=== PATIENT | female | born 1975 ===

== ENCOUNTER 2020-11-18 08:07 | Observation (INO) | payer OTHER ==
[2020-11-18] MEDS ORDERED: ASPIRIN 325 MG TAB PO ONE (08:13)
--- NOTE | 2020-11-18 08:45 | XRay Report ---
CHEST 2 VIEWS INDICATION / CLINICAL INFORMATION: Chest Pain. COMPARISON: None available. FINDINGS: SUPPORT DEVICES: None. HEART / MEDIASTINUM: No significant abnormality. LUNGS / PLEURA: No significant pulmonary or pleural abnormality. No pneumothorax. ADDITIONAL FINDINGS: No significant additional findings. IMPRESSION: 1. No acute findings. Signer Name: nJ Dias MD Signed: 11/18/2020 8:41 AM Workstation Name: [id number]
[2020-11-18 09:40] LABS: Basophils % (Auto) 0.5 % (0.0-1.8); Eosinophils # (Auto) 0.2 K/mm3 (0.0-0.4); Eosinophils % (Auto) 3.1 % (0.0-4.3); Hematocrit 39.6 % (30.3-42.9); Hemoglobin 13.5 gm/dl (10.1-14.3); Lymphocytes # (Auto) 2.2 K/mm3 (1.2-5.4); Lymphocytes % (Auto) 33.6 % (13.4-35.0); Mean Corpuscular HGB Conc 34 % (30-34); Mean Corpuscular Volume 91 fl (79-97); Monocytes # (Auto) 0.3 K/mm3 (0.0-0.8); Monocytes % (Auto) 5.3 % (0.0-7.3); Platelet Count 192 K/mm3 (140-440); Red Blood Count 4.37 M/mm3 (3.65-5.03); Red Cell Distribution Width 13.6 % (13.2-15.2)
[2020-11-18 10:01] LABS: Blood Urea Nitrogen 10 mg/dL (7-17); Calcium 8.4 mg/dL (8.4-10.2); Hemolysis Index 8
[2020-11-18] MEDS ORDERED: NITROGLYCERIN 2% OINT 1 GM TP ONE (10:07)
[2020-11-18] MEDS ORDERED: ONDANSETRON 4 MG/2 ML INJ IV ONE (10:07)
[2020-11-18] MEDS ORDERED: fentaNYL 100 MCG/2 ML INJ IV ONE (10:07)
--- NOTE | 2020-11-18 10:13 | Emergency Department Report ---
HPI - General Chief Complaint: Dyspnea/Respdistress Time Seen by Provider: 11/18/20 09:55 - [facility] HPI: Room 22 The patient is a 45-year-old female present with chief complaint of chest pain. Patient states her symptoms began yesterday while climbing stairs she developed slight substernal chest pressure and shortness of breath. The patient stopped and was able to catch her breath and her symptoms eventually resolved. However, later that day she again developed substernal chest pressure and shortness of breath intermittently. This morning the pressure became "unbearable" prompting the patient to come to the emergency department. Patient denies nausea/vomiting or diaphoresis with her chest pain. The patient currently gives her chest pain a score 4/10. Patient states she is never had a stress test or cardiac catheterization ED Past Medical Hx - Past Medical History Previous Medical History?: Yes Additional medical history: Vaginal delivery x 4 - Surgical History Past Surgical History?: No - Family History Family history: no significant - Social History Smoking Status: Never Smoker Substance Use Type: None (Denies illicit drug use) ED Review of Systems ROS: Stated complaint: CHEST PAIN, DEBI Other details as noted in HPI Constitutional: denies: diaphoresis Eyes: denies: eye pain ENT: denies: throat pain Respiratory: shortness of breath Cardiovascular: chest pain Endocrine: no symptoms reported Gastrointestinal: denies: nausea, vomiting Genitourinary: denies: dysuria Musculoskeletal: denies: back pain Neurological: denies: headache Physical Exam - Physical Exam Vital Signs: Vital Signs 11/18/20 09:02 Pulse Rate 62 Blood Pressure 142/89 [Left] O2 Sat by Pulse 96 Oximetry Physical Exam: GENERAL: The patient is well-developed well-nourished female lying on stretcher not appearing to be in acute distress. [] HEENT: Normocephalic. Atraumatic. Extraocular motions are intact. Patient has moist mucous membranes. NECK: Supple. Trachea midline CHEST/LUNGS: Clear to auscultation. There is no respiratory distress noted. HEART/CARDIOVASCULAR: Regular. There is no tachycardia. There is no gallop rub or murmur. ABDOMEN: Abdomen is soft, nontender. Patient has normal bowel sounds. There is no abdominal distention. SKIN: There is no rash. There is no edema. There is no diaphoresis. NEURO: The patient is awake, alert, and oriented. The patient is cooperative. The patient has no focal neurologic deficits. The patient has normal speech MUSCULOSKELETAL: There is no evidence of acute injury. ED Course Vital Signs 11/18/20 09:02 Pulse Rate 62 Blood Pressure 142/89 [Left] O2 Sat by Pulse 96 Oximetry ED Medical Decision Making - Lab Data Result diagrams: 11/18/20 09:26 11/18/20 09:26 - EKG Data -: EKG Interpreted by Me EKG shows normal: sinus rhythm Rate: normal - EKG Data When compared to previous EKG there are: previous EKG unavailable Interpretation: other (No ischemic changes seen) - Radiology Data Radiology results: report reviewed (Chest x-ray), image reviewed (Chest x-ray) interpreted by me: Chest x-ray-no focal infiltrates, no pneumothorax. No foreign body seen CHEST 2 VIEWS INDICATION / CLINICAL INFORMATION: Chest Pain. COMPARISON: None available. FINDINGS: SUPPORT DEVICES: None. HEART / MEDIASTINUM: No significant abnormality. LUNGS / PLEURA: No significant pulmonary or pleural abnormality. No pneumothorax. ADDITIONAL FINDINGS: No significant additional findings. IMPRESSION: 1. No acute findings. Signer Name: Jn Dias MD Signed: 11/18/2020 7:41 AM Workstation Name: [id number] - Differential Diagnosis ACS, pericarditis, GERD Critical care attestation.: If time is entered above; I have spent that time in minutes in the direct care of this critically ill patient, excluding procedure time. ED Disposition Clinical Impression: Chest pain Disposition: -09 OP ADMIT IP TO THIS HOSP Is pt being admited?: Yes Does the pt Need Aspirin: Yes Condition: Fair Instructions: Nonspecific Chest Pain, Adult Referrals: [facility] [Other] - 3-5 Days Time of Disposition: 11:17 (Hospitalist notified)
[2020-11-18 10:17] LABS: BUN/Creatinine Ratio 20
--- NOTE | 2020-11-18 13:34 | History and Physical Report ---
History of Present Illness Date of examination: 11/18/20 Date of admission: 11/18/20 11:16 Chief complaint: Chest pain History of present illness: 45-year-old female who presents with chief complaint of chest pain. Patient states her symptoms began yesterday while climbing stairs she developed slight substernal chest pressure and shortness of breath. The patient stopped and was able to catch her breath and her symptoms eventually resolved. However, later that day she again developed substernal chest pressure and shortness of breath intermittently. This morning the pressure became "unbearable" prompting the patient to come to the emergency department. Patient denies nausea/vomiting or diaphoresis with her chest pain. The patient currently gives her chest pain a score 4/10. Patient states she is never had a stress test or cardiac catheterization Past History Past Medical History: No medical history Medications and Allergies Allergies Allergy/AdvReac Type Severity Reaction Status Date / Time No Known Allergies Allergy Verified 11/18/20 10:10 Home Medications Medication Instructions Recorded Confirmed Last Taken Type No Known Home Medications [No 11/18/20 11/18/20 Unknown History Reported Home Medications] Review of Systems All systems: negative Exam - Physical Exam Narrative exam: VITAL SIGNS: Reviewed. GENERAL: Awake HEAD: No signs of head trauma. EYES: Pupils are equal. Extraocular motions intact. MOUTH: Oropharynx is normal. NECK: No adenopathy, no JVD. CHEST: Chest with diminished breath sounds bilaterally. No wheezes, rales, or rhonchi. CARDIAC: normal S1 and S2, without murmurs, gallops, or rubs. Mid sternal area tender to palpation ABDOMEN: Soft, non tender and non distended. No rebound or guarding, and no masses palpated. Bowel Sounds normal. MUSCULOSKELETAL: No edema NEUROLOGIC EXAM: Alert and oriented x3. No focal neurologic deficits SKIN: No obvious lesions - Constitutional Vitals: Temp Pulse Resp BP Pulse Ox 61 131/80 96 11/18/20 12:01 11/18/20 12:01 11/18/20 12:01 HEART Score - HEART Score Troponin: Troponin T 0.029 ng/mL (0.00-0.029) 11/18/20 12:23 Results - Labs CBC & Chem 7: 11/18/20 09:26 11/18/20 09:26 Labs: Laboratory Last Values WBC 6.4 K/mm3 (4.5-11.0) 11/18/20 09: RBC 4.37 M/mm3 (3.65-5.03) 11/18/20 09: Hgb 13.5 gm/dl (10.1-14.3) 11/18/20 09: Hct 39.6 % (30.3-42.9) 11/18/20 09: MCV 91 fl (79-97) 11/18/20: MCH 31 pg (28-32) 11/18/20 09: MCHC 34 % (30-34) 11/18/20: RDW 13.6 % (13.2-15.2) 11/18/20: Plt Count 192 K/mm3 (140-440) 11/18/20 09: Lymph % (Auto) 33.6 % (13.4-35.0) 11/18/20 09: [place] % (Auto) 5.3 % (0.0-7.3) 11/18/20 09: Eos % (Auto) 3.1 % (0.0-4.3) 11/18/20: Baso % (Auto) 0.5 % (0.0-1.8) 11/18/20: Lymph # (Auto) 2.2 K/mm3 (1.2-5.4) 11/18/20 09: [place] # (Auto) 0.3 K/mm3 (0.0-0.8) 11/18/20: Eos # (Auto) 0.2 K/mm3 (0.0-0.4) 11/18/20 09: Baso # (Auto) 0.0 K/mm3 (0.0-0.1) 11/18/20 09: Seg Neutrophils % 57.5 % (40.0-70.0) 11/18/20: Seg Neutrophils # 3.7 K/mm3 (1.8-7.7) 11/18/20 09: Sodium 140 mmol/L (137-145) 11/18/20 09: Potassium 3.8 mmol/L (3.6-5.0) 11/18/20 09: Chloride 105.9 mmol/L (98-107) 11/18/20 09:26 Carbon Dioxide 28 mmol/L (22-30) 11/18/20 09:26 Anion Gap 10 mmol/L 11/18/20 09:26 BUN 10 mg/dL (7-17) 11/18/20 09:26 Creatinine 0.5 mg/dL (0.6-1.2) L 11/18/20 09:26 Estimated GFR > 60 ml/min 11/18/20 09:26 BUN/Creatinine Ratio 20 % 11/18/20 09:26 Glucose 99 mg/dL (65-100) 11/18/20 09:26 Calcium 8.4 mg/dL (8.4-10.2) 11/18/20 09:26 Troponin T 0.029 ng/mL (0.00-0.029) 11/18/20 12:23 Assessment and Plan Assessment and plan: #Chest pain Need to rule out ACS. Continue aspirin Trend troponin Scheduled for stress test in a.m. Her chest pain is slightly reproducible with palpation of the sternal area. If stress test is negative, will discharge on anti-inflammatory agent
[2020-11-19] MEDS ORDERED: REGADENOSON 0.4 MG/5 ML INJ IV ONE (07:38)
[2020-11-19 08:08] LABS: Chol/HDL Ratio 3.45 %
[2020-11-19 12:22] VITALS: BP 118/77
--- NOTE | 2020-11-19 14:15 | Discharge Summary ---
Providers - Providers Date of Admission: 11/18/20 11:16 Date of discharge: 11/19/20 Attending physician: NOLAN PEGUERO Hospitalization Condition: Fair Hospital course: 45-year-old female who presents with chief complaint of chest pain. Patient states her symptoms began yesterday while climbing stairs she developed slight substernal chest pressure and shortness of breath. The patient stopped and was able to catch her breath and her symptoms eventually resolved. However, later that day she again developed substernal chest pressure and shortness of breath intermittently. This morning the pressure became "unbearable" prompting the patient to come to the emergency department. Patient denies nausea/vomiting or diaphoresis with her chest pain. The patient currently gives her chest pain a score 4/10. Patient states she is never had a stress test or cardiac catheterization She was admitted for a stress test. On examination, patient has substernal chest pain with tenderness to palpation. I suspect patient has musculoskeletal pain. However she will have a stress test for risk stratification. Her stress test came back negative for any reversible ischemia. her LDL is 135. Her calculated ASCVD risk is 1%. No indication for statins. She will be discharged home to follow-up with PCP. She agrees with plan Final Discharge Diagnosis (Prints w/discharge instructions): Musculoskeletal chest pain Time spent for discharge: 20 minutes - Discharge Diagnoses (1) Chest pain Status: Acute Comment: Likely musculoskeletal. ACS ruled out Core Measure Documentation - Palliative Care Palliative Care/ Comfort Measures: Not Applicable - Core Measures Any of the following diagnoses?: none Exam - Physical Exam Narrative exam: VITAL SIGNS: Reviewed. GENERAL: Awake HEAD: No signs of head trauma. EYES: Pupils are equal. Extraocular motions intact. MOUTH: Oropharynx is normal. NECK: No adenopathy, no JVD. CHEST: Chest with diminished breath sounds bilaterally. No wheezes, rales, or rhonchi. CARDIAC: normal S1 and S2, without murmurs, gallops, or rubs. Mid sternal area tender to palpation ABDOMEN: Soft, non tender and non distended. No rebound or guarding, and no masses palpated. Bowel Sounds normal. MUSCULOSKELETAL: No edema NEUROLOGIC EXAM: Alert and oriented x3. No focal neurologic deficits SKIN: No obvious lesions - Constitutional Vitals: Temp Pulse Resp BP Pulse Ox 97.9 F 80 18 118/77 96 03/15/21 11:22 11/19/20 11:22 11/19/20 11:22 11/19/20 11:22 11/19/20 11:22 Plan Additional Instructions: Follow up with PCP Follow up with: [facility] [Other] - 3-5 Days
== END 2020-11-19 17:00 | disposition home or self-care (01) ==
LOC: ED 08:07 → 4A 11:16
PROVIDERS: ADMIT Internal Medicine; ATTEND Internal Medicine
DX: R07.2 Precordial pain (principal)
CPT/HCPCS: 36415; 71046; 78452; 80048; 80061; 84484; 85025; 87116; 93005; 93017; 99285; A9502; G0378; J2405; J3010